=== PATIENT | female | born 1945 | race Caucasian/White ===

== ENCOUNTER 2017-02-27 13:56 | Outpatient (RCR) | payer MEDICARE, BC ==
[2013-11-26 04:48] VITALS: BP 124/65
[~2017-02-27 13:56] MED LIST: EFFEXOR XR150 M1 PO; LEVOTHYROXINE0.1 M1 PO; NORCO 325 MG-51 TAB PO; ZOCOR10 MG PO
[2017-05-07] MEDS ORDERED: ATORVASTATIN CA40 MG PO (12:22)
[2017-05-07] MEDS ORDERED: LISINOPRIL5 MG PO (12:23)
[2017-05-07] MEDS ORDERED: FOSAMAX 70MG TA70 MG PO (12:23)
[2017-05-07] MEDS ORDERED: LASIX20 M1 PO (12:24)
[2017-05-07] MEDS ORDERED: BISOPROLOL FM5 MG PO (12:24)
[2017-05-07] MEDS ORDERED: CLOPIDOGREL PO (12:24)
== END 2017-05-28 | disposition home or self-care (01) ==
LOC: CARDREHAB
DX: Z48.812 Encounter for surgical aftercare following surgery on the circulatory system (principal); Z95.5 Presence of coronary angioplasty implant and graft; I21.4 Non-ST elevation (NSTEMI) myocardial infarction

== ENCOUNTER 2017-05-07 12:06 | Emergency (ER) | payer MEDICARE, BC ==
[~2017-05-07] VITALS: Ht 177.8 cm; Wt 62.7 kg
[2017-05-07] MEDS ORDERED: ATORVASTATIN CA40 MG PO (12:22)
[2017-05-07] MEDS ORDERED: FOSAMAX 70MG TA70 MG PO (12:23)
[2017-05-07] MEDS ORDERED: LISINOPRIL5 MG PO (12:23)
[2017-05-07] MEDS ORDERED: CLOPIDOGREL PO (12:24)
[2017-05-07] MEDS ORDERED: LASIX20 M1 PO (12:24)
[2017-05-07] MEDS ORDERED: BISOPROLOL FM5 MG PO (12:24)
[2017-05-07 14:12] VITALS: BP 137/47
== END 2017-05-07 14:13 | disposition home or self-care (01) ==
LOC: ED 12:06
DX: R55 Syncope and collapse (principal); I25.10 Atherosclerotic heart disease of native coronary artery without angina pectoris; Z95.5 Presence of coronary angioplasty implant and graft; F32.9 Major depressive disorder, single episode, unspecified; I25.2 Old myocardial infarction; F17.210 Nicotine dependence, cigarettes, uncomplicated

== ENCOUNTER 2017-06-05 10:04 | Outpatient (RCR) | payer MEDICARE, BC ==
[~2017-06-05 10:04] MED LIST changes: +ATORVASTATIN CA40 MG PO; +BISOPROLOL FM5 MG PO; +CLOPIDOGREL PO; +FOSAMAX 70MG TA70 MG PO; +LASIX20 M1 PO; +LISINOPRIL5 MG PO
== END 2017-09-03 | disposition home or self-care (01) ==
LOC: CARDREHAB
DX: Z48.812 Encounter for surgical aftercare following surgery on the circulatory system (principal); I21.19 ST elevation (STEMI) myocardial infarction involving other coronary artery of inferior wall; Z95.5 Presence of coronary angioplasty implant and graft

== ENCOUNTER 2018-01-24 10:00 | Outpatient (RCR) | payer MEDICARE, BC | END 2018-04-07 | disposition home or self-care (01) | LOC: PT | DX: R27.0 Ataxia, unspecified (principal); Z86.69 Personal history of other diseases of the nervous system and sense organs | CPT/HCPCS: G8978-GP; G8979-GP ==

== ENCOUNTER 2019-08-30 19:56 | Emergency (ER) | payer MEDICARE, BC ==
[~2019-08-30] VITALS: Ht 177.8 cm; Wt 61.4 kg
[~2019-08-30 19:56] MED LIST changes: +ASPIRIN E.C. 8181 MG; +BACTRIM DS TAB1 EACH PO; +COZAAR25 M1 PO; +EUTHYROX100 MCG PO; -LEVOTHYROXINE0.1 M1 PO; +PANTOPRAZOLE SO40 MG PO; +WELLBUTRIN SR150 M3 PO
[2019-08-30] MEDS ORDERED: TOPROL XL 25MG25 MG PO (20:25)
[2019-08-30 21:21] LABS: HEMATOCRIT 39.8 % (37.0-47.0); HEMOGLOBIN 13.1 g/dL (12.5-16.0); MEAN CELL VOLUME 92 fl (78-100); MEAN CORPUSCULAR HEMOGLOBIN 30 pg (27-31); MEAN CORPUSCULAR HGB CONC 33 g/dL (33-37); MEAN PLATELET VOLUME 10.1 fl (7.4-10.4); PLATELET COUNT 232 K/mm3 (130-400); RED BLOOD COUNT 4.31 M/mm3 (4.10-5.30); RED CELL DISTRIBUTION WIDTH 14.4 % (11.5-14.5)
[2019-08-30 21:33] LABS: WHITE BLOOD COUNT 25.3 K/mm3 (4.8-10.8)
[2019-08-30 21:41] LABS: BAND 3 % (0-10); LYMPHOCYTE 5 % (20-51); MONOCYTE 2 % (3-10); NEUTROPHILS 90 % (42-75)
[2019-08-30 21:43] LABS: ALBUMIN 3.9 g/dL (3.4-4.8)
[2019-08-30 21:44] LABS: CALCIUM 9.3 mg/dL (8.3-10.5)
[2019-08-30 21:45] LABS: TOTAL PROTEIN 6.8 g/dL (6.2-8.1)
[2019-08-30 22:03] LABS: D-DIMER > 3.50 mg/L FEU (0.15-0.50)
[2019-08-31 00:56] VITALS: BP 168/79
[2019-08-31 00:59] LABS: URINE COLOR AMBER
[2019-08-31 01:00] LABS: URINE APPEARANCE CLOUDY; URINE BILIRUBIN NEGATIVE (NEGATIVE); URINE BLOOD 50 ery/uL (NEGATIVE); URINE GLUCOSE NEGATIVE (NEGATIVE); URINE KETONE NEGATIVE (NEGATIVE); URINE LEUKOCYTE ESTERASE NEGATIVE (NEGATIVE); URINE MUCUS PRESENT (NOT PRESENT); URINE NITRATE NEGATIVE (NEGATIVE); URINE PROTEIN(semi-quant) 1+ mg/dL (NEGATIVE); URINE UROBILINOGEN NORMAL (NORMAL); URINE WBC 0-1 /hpf (0-3)
== END 2019-08-31 00:56 | disposition other institution (70) ==
LOC: ED 19:56
PROVIDERS: Family Medicine
DX: J43.9 Emphysema, unspecified (principal); E03.9 Hypothyroidism, unspecified; K21.9 Gastro-esophageal reflux disease without esophagitis; E78.5 Hyperlipidemia, unspecified; I25.10 Atherosclerotic heart disease of native coronary artery without angina pectoris; F17.210 Nicotine dependence, cigarettes, uncomplicated; Z95.5 Presence of coronary angioplasty implant and graft; Z88.8 Allergy status to other drugs, medicaments and biological substances
CPT/HCPCS: J7030; Q9967

== ENCOUNTER 2019-08-31 00:56 | Inpatient (IN) | payer MEDICARE, BC ==
[2019-08-31] VITALS (7 sets, daily range): BP systolic 131–178; BP diastolic 61–82
[~2019-08-31] VITALS: Ht 177.8 cm; Wt 61.4 kg
[~2019-08-31 00:56] MED LIST changes: +TOPROL XL 25MG25 MG PO
[2019-08-31 07:53] LABS: HEMATOCRIT 36.8 % (37.0-47.0); HEMOGLOBIN 11.6 g/dL (12.5-16.0); MEAN CELL VOLUME 95 fl (78-100); MEAN CORPUSCULAR HEMOGLOBIN 30 pg (27-31); MEAN CORPUSCULAR HGB CONC 32 g/dL (33-37); PLATELET COUNT 201 K/mm3 (130-400); RED BLOOD COUNT 3.87 M/mm3 (4.10-5.30); RED CELL DISTRIBUTION WIDTH 14.5 % (11.5-14.5)
[2019-08-31 07:56] LABS: WHITE BLOOD COUNT 21.5 K/mm3 (4.8-10.8)
[2019-08-31 08:07] LABS: BAND 4 % (0-10); LYMPHOCYTE 14 % (20-51); MONOCYTE 8 % (3-10); NEUTROPHILS 74 % (42-75)
[2019-09-01 03:49] VITALS: BP 152/72
[2019-09-01 06:20] VITALS: BP 128/55
[2019-09-01 08:03] LABS: POTASSIUM 4.4 mmol/L (3.5-5.1)
[2019-09-01 08:04] LABS: CALCIUM 9.4 mg/dL (8.3-10.5)
[2019-09-01 08:07] LABS: HEMATOCRIT 33.7 % (37.0-47.0); HEMOGLOBIN 10.4 g/dL (12.5-16.0); MEAN CELL VOLUME 95 fl (78-100); MEAN CORPUSCULAR HEMOGLOBIN 29 pg (27-31); MEAN CORPUSCULAR HGB CONC 31 g/dL (33-37); MEAN PLATELET VOLUME 10.5 fl (7.4-10.4); PLATELET COUNT 193 K/mm3 (130-400); RED BLOOD COUNT 3.54 M/mm3 (4.10-5.30); RED CELL DISTRIBUTION WIDTH 14.6 % (11.5-14.5); WHITE BLOOD COUNT 19.6 K/mm3 (4.8-10.8)
[2019-09-01 08:34] LABS: BAND 4 % (0-10); LYMPHOCYTE 3 % (20-51); MONOCYTE 3 % (3-10); NEUTROPHILS 90 % (42-75)
[2019-09-01 11:02] VITALS: BP 120/74
[2019-09-01 14:44] VITALS: BP 140/65
[2019-09-01 18:05] VITALS: BP 138/59
[2019-09-01 22:46] VITALS: BP 136/68
[2019-09-02 02:50] VITALS: BP 137/70
[2019-09-02 06:43] VITALS: BP 148/87
[2019-09-02 08:56] LABS: HEMATOCRIT 34.6 % (37.0-47.0); HEMOGLOBIN 10.8 g/dL (12.5-16.0); MEAN CELL VOLUME 94 fl (78-100); MEAN CORPUSCULAR HEMOGLOBIN 29 pg (27-31); MEAN CORPUSCULAR HGB CONC 31 g/dL (33-37); MEAN PLATELET VOLUME 10.6 fl (7.4-10.4); PLATELET COUNT 225 K/mm3 (130-400); RED CELL DISTRIBUTION WIDTH 14.8 % (11.5-14.5); WHITE BLOOD COUNT 14.9 K/mm3 (4.8-10.8)
[2019-09-02 09:20] LABS: LYMPHOCYTE 7 % (20-51); MONOCYTE 5 % (3-10); NEUTROPHILS 88 % (42-75)
[2019-09-02 10:50] VITALS: BP 146/70
[2019-09-02 14:38] VITALS: BP 151/75
[2019-09-02 18:03] VITALS: BP 170/77
[2019-09-02 23:20] VITALS: BP 153/73
[2019-09-03 03:00] VITALS: BP 157/93
[2019-09-03 06:12] VITALS: BP 176/98
[2019-09-03 06:31] LABS: HEMATOCRIT 32.9 % (37.0-47.0); HEMOGLOBIN 10.3 g/dL (12.5-16.0); MEAN CELL VOLUME 93 fl (78-100); MEAN CORPUSCULAR HEMOGLOBIN 29 pg (27-31); MEAN CORPUSCULAR HGB CONC 31 g/dL (33-37); MEAN PLATELET VOLUME 10.3 fl (7.4-10.4); PLATELET COUNT 208 K/mm3 (130-400); RED BLOOD COUNT 3.54 M/mm3 (4.10-5.30); RED CELL DISTRIBUTION WIDTH 14.8 % (11.5-14.5); WHITE BLOOD COUNT 11.1 K/mm3 (4.8-10.8)
[2019-09-03 06:45] LABS: POTASSIUM 3.9 mmol/L (3.5-5.1)
[2019-09-03 06:47] LABS: CALCIUM 9.2 mg/dL (8.3-10.5)
[2019-09-03 06:52] LABS: BAND 1 % (0-10); LYMPHOCYTE 7 % (20-51); METAMYELOCYTE 2 % (0-0); MONOCYTE 7 % (3-10); MYELOCYTE 2 % (0-0); NEUTROPHILS 80 % (42-75)
[2019-09-03 11:55] VITALS: BP 145/69
[2019-09-03 14:56] VITALS: BP 160/77
[2019-09-03 18:09] VITALS: BP 167/81
[2019-09-03 23:29] VITALS: BP 141/69
[2019-09-04 03:38] VITALS: BP 169/101
[2019-09-04 06:08] LABS: HEMATOCRIT 33.2 % (37.0-47.0); HEMOGLOBIN 10.6 g/dL (12.5-16.0); MEAN CELL VOLUME 93 fl (78-100); MEAN CORPUSCULAR HEMOGLOBIN 30 pg (27-31); MEAN CORPUSCULAR HGB CONC 32 g/dL (33-37); MEAN PLATELET VOLUME 10.3 fl (7.4-10.4); PLATELET COUNT 212 K/mm3 (130-400); RED BLOOD COUNT 3.59 M/mm3 (4.10-5.30); RED CELL DISTRIBUTION WIDTH 14.8 % (11.5-14.5); WHITE BLOOD COUNT 10.9 K/mm3 (4.8-10.8)
[2019-09-04 06:10] VITALS: BP 158/60
[2019-09-04 06:13] LABS: POTASSIUM 3.7 mmol/L (3.5-5.1)
[2019-09-04 06:15] LABS: CALCIUM 8.9 mg/dL (8.3-10.5)
[2019-09-04 06:28] LABS: LYMPHOCYTE 13 % (20-51); METAMYELOCYTE 3 % (0-0); MONOCYTE 9 % (3-10); MYELOCYTE 4 % (0-0); NEUTROPHILS 70 % (42-75)
[2019-09-04 06:29] LABS: NUCLEATED RED BLOOD CELL 1 (0-6)
[2019-09-04 10:36] VITALS: BP 146/74
[2019-09-04] MEDS ORDERED: AUGMENTIN 875-1 EAC1 PO (12:22)
[2019-09-04] MEDS ORDERED: PREDNISONE20 M1 PO (12:22)
[2019-09-04] MEDS ORDERED: IPRATROPIUM BROM3 M1 IH (12:23)
[2019-09-04] MEDS ORDERED: MUCUS RELIEF400 M1 PO (12:23)
[2019-09-04] MEDS ORDERED: ADVAIR DISKUS1 DS2 IH (12:24)
[2019-09-04 14:43] VITALS: BP 144/70
== END 2019-09-04 15:45 | disposition home health service (06) | DRG 190 ==
LOC: MED/SURG 00:56
PROVIDERS: Nurse Practitioner Primary Care; Physician Assistant; ADMIT Family Medicine
DX: J43.9 Emphysema, unspecified (principal); J18.1 Lobar pneumonia, unspecified organism; Z68.1 Body mass index [BMI] 19.9 or less, adult; E86.9 Volume depletion, unspecified; R63.0 Anorexia; R53.81 Other malaise; F17.210 Nicotine dependence, cigarettes, uncomplicated; I25.10 Atherosclerotic heart disease of native coronary artery without angina pectoris; Z95.5 Presence of coronary angioplasty implant and graft; E78.5 Hyperlipidemia, unspecified; K21.9 Gastro-esophageal reflux disease without esophagitis; E03.9 Hypothyroidism, unspecified
CPT/HCPCS: A4216; J0456; J0696; J1650; J2405; J2543; J2930; J3480; J7050